=== PATIENT | male | born 1940 | race Two or more races ===

== ENCOUNTER 2024-09-27 15:17 | Inpatient (IN) | payer OTHER ==
[~2024-09-27] VITALS: Ht 167.6 cm; Wt 59.0 kg
[2024-09-27] MEDS ORDERED: ACETAMINOPHEN 500 MG GEL..CAP PO ONE (15:35)
--- NOTE | 2024-09-27 15:43 | NUR ---
PACIENTE ALERTA Y ORIENTDADO X3, REFIERE QUE DESDE EL WOOD DE [place]HAYA DRENAJE DE NEPHROCTOMIA NO ELIMINA LIQUIDO. PROCEDIMIENTO REALIZADO EL MIERCOLES. PTE CON FEBRIL TEMP. 104.4. SE ADMINISTRA 2 TABLETA DE TYLENOL Y SE UBICA. ES PTE DE DR. ALLISON CLARKE.
[2024-09-27] MEDS ORDERED: 0.9 % SODIUM CHLORIDE 1,000 ML IV SCH ×2 (16:15→18:00)
[2024-09-27] MEDS ORDERED: CEFTRIAXONE SODIUM 1,000 MG VIAL IV ONE (16:30)
[2024-09-27] MEDS ORDERED: CEFTRIAXONE SODIUM 1,000 MG VIAL ONE ×2 (16:57→18:49)
[2024-09-27 17:10] LABS: HEMATOCRIT 27.1 % (39.0-48.0); HEMOGLOBIN 8.8 g/dL (13-16.00); MEAN CELL VOLUME 85.2 fL (80.0-100.00); MEAN CORPUSCULAR HEMOGLOBIN 27.7 pg (27.00-32.0); MEAN CORPUSCULAR HGB CONC 32.6 g/dl (32.0-36.0); PLATELET COUNT 144 K/uL (150-450); RED BLOOD COUNT 3.17 M/uL (4.00-6.00); RED CELL DISTRIBUTION WIDTH 15.5 % (11.5-14.5)
--- NOTE | 2024-09-27 17:14 | NUR ---
ABBIE ROMERO EJECUTA ORDENES MEDICAS.
[2024-09-27 17:26] LABS: INR 1.27; PARTIAL THROMBOPLASTIN TIME 33.5 SECONDS (22.0-34.0); PROTHROMBIN TIME 13.6 SECONDS (9.0-11.5)
[2024-09-27 17:30] LABS: ALBUMIN 2.4 gm/dL (3.4-5.0); BILIRUBIN TOTAL 0.87 mg/dL (0.3-1.2); CALCIUM 8.3 mg/dL (8.5-10.1); CREATININE SERUM 2.11 mg/dL (0.70-1.30); GLOBULINA 4.1 G/DL (2.4-3.5); POTASSIUM 3.85 mEq/L (3.5-5.1); TOTAL PROTEIN 6.5 gm/dL (6.4-8.2)
[2024-09-27 17:34] LABS: URINE APPEARANCE Cloudy; URINE BILIRRUBIN Negative (NEGATIVE); URINE BLOOD Moderate; URINE COLOR Dark Yellow; URINE GLUCOSE Negative (NEGATIVE); URINE KETONE Negative (NEGATIVE); URINE LEUKOCYTE Small; URINE NITRATE Negative
[2024-09-27 17:38] LABS: URINE BACTERIA 309.6 uL (0.0-1933); URINE CAST 6.03 uL (0.0-1.40); URINE RBC 19.1 uL (0.0-20.8); URINE WBC 62.2 uL (0.0-23.2)
[2024-09-27] MEDS ORDERED: CEFTRIAXONE SODIUM 2,000 MG in 0.9 % SODIUM CHLORIDE 100 ML IV SCH (17:59)
[2024-09-27 18:00] LABS: URINE CRYSTALS FEW /HPF; URINE PROTEIN 100 (NEGATIVE)
[2024-09-27] MEDS ORDERED: ACETAMINOPHEN 500 MG GEL..CAP PO PRN (18:00)
[2024-09-27] MEDS ORDERED: FAMOTIDINE/PF 20 MG in 0.9 % SODIUM CHLORIDE 8 ML IV PUSH SCH (18:00)
[2024-09-27 18:01] LABS: URINE MUCUS SCANT
[2024-09-27] MEDS ORDERED: FAMOTIDINE/PF 20 MG/2 ML VIAL ONE (18:49)
[2024-09-27 19:02] LABS: HEMATOCRIT 25.9 % (39.0-48.0); HEMOGLOBIN 8.4 g/dL (13-16.00); MEAN CELL VOLUME 85.1 fL (80.0-100.00); MEAN CORPUSCULAR HEMOGLOBIN 27.5 pg (27.00-32.0); MEAN CORPUSCULAR HGB CONC 32.3 g/dl (32.0-36.0); PLATELET COUNT 139 K/uL (150-450); RED BLOOD COUNT 3.05 M/uL (4.00-6.00); RED CELL DISTRIBUTION WIDTH 15.7 % (11.5-14.5)
[2024-09-27 19:03] LABS: ERYTHROCYTE SEDIMENTATION RATE 101 mm/hr
[2024-09-27] MEDS ORDERED: MIDAZOLAM HCL 2 MG/2 ML VIAL IV PUSH ONE (20:15)
[2024-09-27] MEDS ORDERED: fentaNYL CITRATE 50 MCG/ML AMPUL IV PUSH ONE (20:15)
[2024-09-28 03:12] VITALS: BP 155/65; O2SAT 97
[2024-09-28 08:00] VITALS: BP 178/64
[2024-09-28] MEDS ORDERED: ENALAPRIL MALEATE 5 MG TABLET PO SCH (09:00)
[2024-09-28 17:10] VITALS: BP 154/60
[2024-09-28] MEDS ORDERED: SODIUM CHLORIDE 0.45 % 1,000 ML IV SCH (18:30)
[2024-09-29 01:43] VITALS: BP 140/60; O2SAT 99
[2024-09-29 08:00] VITALS: BP 134/69; O2SAT 98
[2024-09-29 08:19] LABS: HEMATOCRIT 27.2 % (39.0-48.0); HEMOGLOBIN 8.9 g/dL (13-16.00); MEAN CELL VOLUME 84.6 fL (80.0-100.00); MEAN CORPUSCULAR HEMOGLOBIN 27.7 pg (27.00-32.0); MEAN CORPUSCULAR HGB CONC 32.7 g/dl (32.0-36.0); PLATELET COUNT 172 K/uL (150-450); RED BLOOD COUNT 3.21 M/uL (4.00-6.00)
[2024-09-29 08:35] LABS: ALBUMIN 2.1 gm/dL (3.4-5.0); BILIRUBIN TOTAL 0.37 mg/dL (0.3-1.2); CALCIUM 8.4 mg/dL (8.5-10.1); CREATININE SERUM 1.64 mg/dL (0.70-1.30); GFR 40.13; GLOBULINA 3.5 G/DL (2.4-3.5); POTASSIUM 4.02 mEq/L (3.5-5.1); TOTAL PROTEIN 5.6 gm/dL (6.4-8.2)
[2024-09-29 13:38] LABS: HEMATOCRIT 32.6 % (39.0-48.0); HEMOGLOBIN 10.6 g/dL (13-16.00); MEAN CELL VOLUME 80.9 fL (80.0-100.00); MEAN CORPUSCULAR HEMOGLOBIN 26.3 pg (27.00-32.0); MEAN CORPUSCULAR HGB CONC 32.5 g/dl (32.0-36.0); PLATELET COUNT 186 K/uL (150-450); RED BLOOD COUNT 4.03 M/uL (4.00-6.00)
[2024-09-29 13:39] LABS: RED CELL DISTRIBUTION WIDTH 20.9 % (11.5-14.5)
[2024-09-29 17:28] VITALS: BP 153/71
[2024-09-29] MEDS ORDERED: AMPICILLIN SODIUM/SULBACTAM NA 3,000 MG in 0.9 % SODIUM CHLORIDE 100 ML IV SCH (21:00)
[2024-09-30 00:48] VITALS: BP 150/60
[2024-09-30 10:09] VITALS: BP 147/57; O2SAT 98
[2024-09-30 16:48] VITALS: BP 155/55
[2024-10-01 03:07] VITALS: BP 164/71; O2SAT 96
[2024-10-01 08:44] LABS: URINE BLOOD LARGE; URINE LEUKOCYTE LARGE; URINE NITRATE POSITIVE
[2024-10-01 08:49] LABS: URINE BACTERIA 1206.8 uL (0.0-1933); URINE EPITHELIAL CELLS 9.8 uL (0.0-38.8); URINE WBC 1201.8 uL (0.0-23.2)
[2024-10-01 08:52] VITALS: BP 150/69; O2SAT 95
[2024-10-01 08:54] LABS: URINE APPEARANCE BLOODY; URINE BILIRRUBIN LARGE (NEGATIVE); URINE COLOR RED; URINE GLUCOSE 100 MG/DL (NEGATIVE); URINE KETONE 15 (NEGATIVE); URINE PROTEIN >=300 (NEGATIVE); URINE UROBILINOGEN >= 8.0 E.U./dl
[2024-10-01 08:57] LABS: URINE RBC > 10558.9 uL (0.0-20.8)
[2024-10-01] MEDS ORDERED: FAMOtidine 20 MG TABLET PO SCH (09:00)
[2024-10-01 10:23] LABS: HEMATOCRIT 30.3 % (39.0-48.0); HEMOGLOBIN 9.7 g/dL (13-16.00); MEAN CELL VOLUME 82.3 fL (80.0-100.00); MEAN CORPUSCULAR HEMOGLOBIN 26.4 pg (27.00-32.0); MEAN CORPUSCULAR HGB CONC 32.1 g/dl (32.0-36.0); PLATELET COUNT 214 K/uL (150-450); RED BLOOD COUNT 3.68 M/uL (4.00-6.00); RED CELL DISTRIBUTION WIDTH 20.1 % (11.5-14.5)
[2024-10-01 11:19] LABS: ALBUMIN 2.2 gm/dL (3.4-5.0); BILIRUBIN TOTAL 0.39 mg/dL (0.3-1.2); CALCIUM 8.6 mg/dL (8.5-10.1); CREATININE SERUM 1.34 mg/dL (0.70-1.30); GFR 50.66; GLOBULINA 4.4 G/DL (2.4-3.5); MAGNESIUM 1.8 mg/dL (1.8-2.4); PHOSPHOROUS 2.7 mg/dL (2.5-4.9); POTASSIUM 3.79 mEq/L (3.5-5.1); TOTAL PROTEIN 6.6 gm/dL (6.4-8.2)
[2024-10-01 11:20] LABS: C-REACTIVE PROTEIN 9.05 MG/DL (0.00-0.29)
[2024-10-01 17:30] VITALS: BP 160/85; O2SAT 97
[2024-10-01] MEDS ORDERED: AMPICILLIN SODIUM/SULBACTAM NA 3,000 MG in 0.9 % SODIUM CHLORIDE 100 ML IV SCH (20:00)
[2024-10-01 22:28] VITALS: BP 160/64; O2SAT 96
[2024-10-02 02:35] VITALS: BP 160/71; O2SAT 95
[2024-10-02 08:15] VITALS: BP 151/65; O2SAT 95
[2024-10-02 08:33] LABS: HEMATOCRIT 28.6 % (39.0-48.0); MEAN CELL VOLUME 81.8 fL (80.0-100.00); MEAN CORPUSCULAR HEMOGLOBIN 26.2 pg (27.00-32.0); MEAN CORPUSCULAR HGB CONC 32.1 g/dl (32.0-36.0); PLATELET COUNT 235 K/uL (150-450); RED CELL DISTRIBUTION WIDTH 19.8 % (11.5-14.5)
[2024-10-02 08:51] LABS: HEMOGLOBIN 9.2 g/dL (13-16.00)
[2024-10-02 09:04] LABS: ALBUMIN 2.1 gm/dL (3.4-5.0); CALCIUM 8.3 mg/dL (8.5-10.1); CREATININE SERUM 1.18 mg/dL (0.70-1.30); GFR 58.67; PHOSPHOROUS 2.6 mg/dL (2.5-4.9); POTASSIUM 3.82 mEq/L (3.5-5.1)
[2024-10-02 17:45] VITALS: BP 202/69; O2SAT 98
[2024-10-02 23:07] VITALS: BP 160/71
[2024-10-03 02:58] VITALS: BP 176/77; O2SAT 96
[2024-10-03] MEDS ORDERED: hydrALAZINE HCL 20 MG VIAL IV PRN (06:30)
[2024-10-03 08:14] VITALS: BP 170/69; O2SAT 98
[2024-10-03] MEDS ORDERED: ENALAPRIL MALEATE 20 MG TABLET PO SCH (09:00)
[2024-10-03 15:28] LABS: CALCIUM 7.7 mg/dL (8.5-10.1); CREATININE SERUM 0.8 mg/dL (0.70-1.30); GFR 91.87; POTASSIUM 3.66 mEq/L (3.5-5.1)
[2024-10-03 15:51] LABS: HEMATOCRIT 34.5 % (39.0-48.0); HEMOGLOBIN 11.3 g/dL (13-16.00); MEAN CORPUSCULAR HEMOGLOBIN 26.8 pg (27.00-32.0); MEAN CORPUSCULAR HGB CONC 32.7 g/dl (32.0-36.0); PLATELET COUNT 268 K/uL (150-450); RED BLOOD COUNT 4.21 M/uL (4.00-6.00); RED CELL DISTRIBUTION WIDTH 20.1 % (11.5-14.5)
[2024-10-03] MEDS ORDERED: AMPICILLIN SODIUM/SULBACTAM NA 3,000 MG VIAL ONE (16:11)
[2024-10-03 17:46] VITALS: BP 160/80; O2SAT 100
[2024-10-03] MEDS ORDERED: NIFEDIPINE 30 MG TAB.SA.OSM PO SCH (21:08)
[2024-10-03 22:24] VITALS: BP 160/70; O2SAT 98
[2024-10-04] VITALS: BP 172/80; O2SAT 99
[2024-10-04 10:51] VITALS: BP 123/64; O2SAT 99
[2024-10-04 18:34] VITALS: BP 122/66
[2024-10-05 02:05] VITALS: BP 132/69; O2SAT 98
[2024-10-05 10:32] VITALS: BP 153/69; O2SAT 100
[2024-10-05 17:11] VITALS: BP 135/74; O2SAT 98
== END 2024-10-05 18:02 | disposition home or self-care (01) | DRG 689 ==
LOC: ER 15:18 → MEDJ 18:21
PROVIDERS: General Practice; Internal Medicine; Internal Medicine Infectious Disease; Internal Medicine Nephrology; ADMIT Internal Medicine; ATTEND Internal Medicine
PROC: 0T25X0Z Change Drainage Device in Kidney, External Approach (ICD-10-PCS; principal; 2024-09-27)
PROC: BW21ZZZ Computerized Tomography (CT Scan) of Abdomen and Pelvis (ICD-10-PCS; 2024-09-27)
PROC: 30233N1 Transfusion of Nonautologous Red Blood Cells into Peripheral Vein, Percutaneous Approach (ICD-10-PCS; 2024-09-29)
PROC: 8E0ZXY6 Isolation (ICD-10-PCS; 2024-10-01)
PROC: BT4JZZZ Ultrasonography of Kidneys and Bladder (ICD-10-PCS; 2024-10-01)
DX: N39.0 Urinary tract infection, site not specified (principal); A41.9 Sepsis, unspecified organism; N17.9 Acute kidney failure, unspecified; E87.0 Hyperosmolality and hypernatremia; N99.522 Malfunction of incontinent external stoma of urinary tract; D64.9 Anemia, unspecified; B95.2 Enterococcus as the cause of diseases classified elsewhere; B96.4 Proteus (mirabilis) (morganii) as the cause of diseases classified elsewhere; N40.1 Benign prostatic hyperplasia with lower urinary tract symptoms; N13.8 Other obstructive and reflux uropathy; I10 Essential (primary) hypertension